=== PATIENT | female | born 1955 | race Caucasian/White ===

== ENCOUNTER → 2018-06-24 | Outpatient (CLI) | payer OTHER | END | disposition home or self-care (01) | LOC: LAB EV 16:46 → LAB SHORT 16:46 | DX: J02.9 Acute pharyngitis, unspecified (principal) | CPT/HCPCS: 87070 ==

== ENCOUNTER 2019-02-26 07:35 | Day surgery (SDC) | payer OTHER ==
[~2019-02-26] VITALS: Ht 165.1 cm; Wt 52.9 kg
[~2019-02-26 07:35] MED LIST: ASCO500 PO; Adult Low Dose81 MG PO; BACL20 PO; BIOTIN1000 MCG PO; Carac30 GM TOP; ESTR2 PO; Esgic Tablet1 EACH PO; GABA800 PO; LORATADINE D PO; NATURAL LUTEIN20 MG PO; TOCO1000 PO
[2019-02-26] MEDS ORDERED: AMLO5 PO (08:21)
[2019-02-26] MEDS ORDERED: ACYC200 PO (08:23)
== END 2019-02-26 10:01 | disposition home or self-care (01) ==
LOC: ORSCSDS 07:35
PROVIDERS: Internal Medicine Gastroenterology
PROC: 0DBN8ZX Excision of Sigmoid Colon, Via Natural or Artificial Opening Endoscopic, Diagnostic (ICD-10-PCS; principal; 2019-02-26 08:45)
PROC: 0DBK8ZX Excision of Ascending Colon, Via Natural or Artificial Opening Endoscopic, Diagnostic (ICD-10-PCS; principal; 2019-02-26 08:45)
PROC: 0DBP8ZX Excision of Rectum, Via Natural or Artificial Opening Endoscopic, Diagnostic (ICD-10-PCS; principal; 2019-02-26 08:45)
DX: Z12.11 Encounter for screening for malignant neoplasm of colon (principal); D12.5 Benign neoplasm of sigmoid colon; D12.2 Benign neoplasm of ascending colon; K57.30 Diverticulosis of large intestine without perforation or abscess without bleeding; J45.909 Unspecified asthma, uncomplicated; K64.8 Other hemorrhoids; Z80.0 Family history of malignant neoplasm of digestive organs; K62.89 Other specified diseases of anus and rectum; F17.210 Nicotine dependence, cigarettes, uncomplicated; Z79.82 Long term (current) use of aspirin; Z79.899 Other long term (current) drug therapy
CPT/HCPCS: 88305; J2704; J7120

== ENCOUNTER 2020-06-16 05:50 | Day surgery (SDC) | payer MEDICARE ==
[~2020-06-16] VITALS: Ht 167.6 cm; Wt 62.0 kg
[~2020-06-16 05:50] MED LIST changes: +ACYC200 PO; +AMLO5 PO; +TOPROL XL25 MG PO; +XARELTO20 MG PO
[2020-06-16] MEDS ORDERED: Nexium40 MG PO (06:31)
--- NOTE | 2020-06-16 10:28 | NUR ---
POST OP S/P DUAL CHAMBER PACEMAKER. POST OP VS IN PROGRESS AND STABLE. 1 NORCO GIVEN WITH CRACKERS FOR PAIN TO LEFT CHEST WALL. DRESSING APPEARS CDI. SLING PLACED TO LEFT ARM AND PT EDUCATED ON ARM RESTRICTIONS. UP TO RESTROOM INDEP. ORIENTED TO CALL LIGHT AND ROOM. SIG OTHER AT BEDSIDE FOR SUPPORT.
--- NOTE | 2020-06-16 15:54 | NUR ---
SHIFT SUMMARY NO ACUTE CHANGES. 1 NORCO + ICE TO LEFT SHOULDER FOR PAIN MANAGEMENT. LEFT ARM REMAINS IN SLING AND DRESSING CDI. TELE PACED/AFLUTTER IN THE 60s. PT INDEP TO BATHROOM. NEREIDA DIET. PLANNING FOR DISCHARGE HOME TOMORROW.
--- NOTE | 2020-06-17 05:23 | NUR ---
SHIFT SUMMARY POD#1 PACER PLACEMENT. AAOX4. DRESSING TO LEFT CHEST WALL C/D/I. LUE IN SLING. ICE APPLIED TO DRESSING PRN T/O NIGHT. TELEMETRY IN PLACE, NSR TO A-FLUTTER 60s TO 80s WITH OCCASSIONAL ATRIAL PACING. AWAITING EKG + INTERRIGATION THIS AM. PT RESTED WELL T/O NIGHT. DISCOMFORT DECREASED WITH 1 NORCO Q4H. PT CURRENTLY RESTING AT THIS TIME WITH CALL LIGHT IN REACH.
[2020-06-17] MEDS ORDERED: HYDROCODONE-AC1 EAC8 PO (11:01)
--- NOTE | 2020-06-17 14:03 | NUR ---
DISCHARGE: PACKET PRINTED AND PT EUDUCATED. PT VERBALIZED UNDERSTANDING. PT GIVEN SCRIPT. 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
== END 2020-06-17 11:00 | disposition home or self-care (01) ==
LOC: MHTC 05:50 → SURS 08:35 → MHTC 06-17 11:00
DX: I49.5 Sick sinus syndrome (principal); I48.0 Paroxysmal atrial fibrillation; I48.91 Unspecified atrial fibrillation; F17.210 Nicotine dependence, cigarettes, uncomplicated; K21.9 Gastro-esophageal reflux disease without esophagitis; Z79.899 Other long term (current) drug therapy; Z88.0 Allergy status to penicillin; Z88.8 Allergy status to other drugs, medicaments and biological substances; Z79.01 Long term (current) use of anticoagulants
CPT/HCPCS: 33208; 71045; 71046; 76937; 99152; 99153; A9270-GY; C1785; C1894; C1898; J0690; J1644; J2250; J3010; J3370; J7030; J7040

== ENCOUNTER 2020-09-22 18:05 | Emergency (ER) | payer MEDICARE ==
[~2020-09-22] VITALS: Ht 165.1 cm; Wt 49.9 kg
[~2020-09-22 18:05] MED LIST changes: +GABA300 PO; -GABA800 PO; +HYDROCODONE-AC1 EAC8 PO; +Nexium40 MG PO
[2020-09-22 19:17] LABS: BASOPHILS ABSOLUTE AUTO 0.01 K/mm3 (0.00-0.23); BASOPHILS PERCENT AUTO 1 % (0-2); EOSINOPHILS PERCENT AUTO 0 % (0-6); Hematocrit 48.6 % (33.0-51.0); Hemoglobin 15.8 g/dL (11.5-16.0); Mean Corpuscular HGB 31.9 pg (26.0-34.0); Mean Corpuscular HGB Conc 32.5 g/dL (31.5-36.5); Mean Corpuscular Volume 98 fL (80-100); Mean Platelet Volume 9.6 fL (9.1-12.4); Platelet Count 214 K/mm3 (150-400); RDW Standard Deviation 54.5 fL (35.1-46.3); Red Blood Cell Count 4.96 M/mm3 (3.80-5.20); White Blood Cell Count 1.17 K/mm3 (4.00-11.30)
[2020-09-22 19:18] LABS: IMMATURE GRAN PERCENT AUTO 0 % (0-1); LYMPHOCYTES PERCENT AUTO 17 % (21-46); MONOCYTES ABSOLUTE AUTO 0.02 K/mm3 (0.16-1.47); MONOCYTES PERCENT AUTO 2 % (4-13); NEUTROPHILS ABSOLUTE AUTO 0.94 K/mm3 (1.96-9.15); NEUTROPHILS PERCENT AUTO 80 % (41-73)
[2020-09-22 19:34] LABS: Alanine Aminotransfer (ALT/SGP 17 U/L (12-78); Albumin, Blood 3.7 g/dL (3.4-5.0); Albumin/Globulin Ratio 0.8 (0.8-1.8); Alk Phos 99 U/L (50-136); Anion Gap 10 mmol/L (6-16); Aspartate Aminotrans (AST/SGOT 29 U/L (12-37); Blood Urea Nitrogen 12 mg/dL (8-24); Bun/Creatinine Ratio 15.6 (12.0-20.0); CO2, Blood 23 mmol/L (21-32); Calcium, Blood 8.7 mg/dL (8.5-10.1); Chloride, Blood 101 mmol/L (98-108); Creatinine, Blood 0.77 mg/dL (0.40-1.00); Globulin, Blood 4.4 g/dL (2.2-4.0); Glomerular Filtration Rate >60 (60-); Glucose, Blood 99 mg/dL (70-99); Potassium, Blood 3.6 mmol/L (3.5-5.5); Sodium, Blood 134 mmol/L (136-145); Total Protein, Blood 8.1 g/dL (6.4-8.2)
[2020-09-22] MEDS ORDERED: ONDA8 PO (19:52)
[2020-09-22] MEDS ORDERED: Revlimid10 MG PO (19:55)
[2020-09-22] MEDS ORDERED: Roxicodone5 MG PO (20:29)
[2020-09-22] MEDS ORDERED: KETO10 PO (20:29)
[2020-09-22] MEDS ORDERED: Zofran8 MG PO (20:29)
== END 2020-09-22 21:06 | disposition home or self-care (01) ==
LOC: ER 18:05
PROVIDERS: Physician Assistant
DX: N13.2 Hydronephrosis with renal and ureteral calculous obstruction (principal); I10 Essential (primary) hypertension; I48.0 Paroxysmal atrial fibrillation; F17.210 Nicotine dependence, cigarettes, uncomplicated; Z95.0 Presence of cardiac pacemaker; Z79.899 Other long term (current) drug therapy
CPT/HCPCS: 36415; 76705; 80053; 83690; 85025; 96361; 96374; 96375; 99284-25; A9270; A9270-GY; J1170; J1885; J2405; J7030

== ENCOUNTER → 2020-09-29 | Outpatient (CLI) | payer MEDICARE ==
[~2020-09-29] MED LIST changes: +KETO10 PO; +ONDA8 PO; +Revlimid10 MG PO; +Roxicodone5 MG PO; +Zofran8 MG PO
[2020-09-29 10:12] LABS: BASOPHILS ABSOLUTE AUTO 0.05 K/mm3 (0.00-0.23); BASOPHILS PERCENT AUTO 3 % (0-2); Hematocrit 34.2 % (33.0-51.0); LYMPHOCYTES ABSOLUTE AUTO 0.27 K/mm3 (0.84-5.20); LYMPHOCYTES PERCENT AUTO 15 % (21-46); MONOCYTES ABSOLUTE AUTO 0.31 K/mm3 (0.16-1.47); MONOCYTES PERCENT AUTO 17 % (4-13); Mean Corpuscular HGB 31.4 pg (26.0-34.0); Mean Corpuscular HGB Conc 35.1 g/dL (31.5-36.5); Mean Corpuscular Volume 90 fL (80-100); RDW Coefficient Variation 15.3 % (11.7-14.2); RDW Standard Deviation 50.5 fL (35.1-46.3); Red Blood Cell Count 3.82 M/mm3 (3.80-5.20)
[2020-09-29 10:27] LABS: Albumin, Blood 1.9 g/dL (3.4-5.0); Albumin/Globulin Ratio 0.5 (0.8-1.8); Bilirubin, Total 2.4 mg/dL (0.1-1.0); Bun/Creatinine Ratio 31.9 (12.0-20.0); Calcium, Blood 8.2 mg/dL (8.5-10.1); Creatinine, Blood 1.41 mg/dL (0.40-1.00); Globulin, Blood 3.9 g/dL (2.2-4.0); Potassium, Blood 3.2 mmol/L (3.5-5.5); Total Protein, Blood 5.8 g/dL (6.4-8.2)
[2020-09-29 10:36] LABS: EOSINOPHILS PERCENT AUTO 6 % (0-6); IMMATURE GRAN ABSOLUTE AUTO 0.14 K/mm3 (0.00-0.10); IMMATURE GRAN PERCENT AUTO 8 % (0-1); NEUTROPHILS ABSOLUTE AUTO 0.94 K/mm3 (1.96-9.15); NEUTROPHILS PERCENT AUTO 52 % (41-73)
[2020-09-29 10:38] LABS: Platelet Count 13 K/mm3 (150-400); White Blood Cell Count 1.81 K/mm3 (4.00-11.30)
== END | disposition home or self-care (01) ==
LOC: LAB SHORT 09:55 → LAB EV 09:55
PROVIDERS: Physician Assistant
DX: R50.9 Fever, unspecified (principal); R53.83 Other fatigue
CPT/HCPCS: 80053; 83605; 85025

== ENCOUNTER → 2020-10-26 | Outpatient (CLI) | payer MEDICARE ==
[2020-10-26 15:36] LABS: Source, Urine Clean Catch
[2020-10-26 16:51] LABS: Appearance, Urine Hazy (Clear); Bilirubin, Urine Neg (Neg); Blood, Urine 2+ (Neg); Color, Urine Yellow (P-Yellow); Glucose Qualitative, Urine Neg (Neg); Ketones, Urine Neg (Neg); Leukocyte Esterase, Urine 2+ (Neg); Nitrite, Urine Neg (Neg); Protein, Urine 2+ (Neg); Urobilinogen, Urine NORM (Normal)
[2020-10-26 17:05] LABS: Bacteria Rare /hpf; Squamous Epithelial Cells Mod /hpf (Few)
== END | disposition home or self-care (01) ==
LOC: LAB 15:30 → LAB SHORT 15:30
PROVIDERS: Urology Female Pelvic Medicine and Reconstructive Surgery
DX: R35.0 Frequency of micturition (principal)
CPT/HCPCS: 81001; 87086

== ENCOUNTER → 2022-08-08 | Outpatient (CLI) | payer MEDICARE | LOC: PLD 07:57 → LAB SHORT 07:57 → LAB 07:57 | DX: D48.5 Neoplasm of uncertain behavior of skin (principal) | CPT/HCPCS: 88305 ==

== ENCOUNTER 2024-04-18 16:28 | Inpatient (IN) | payer MEDICARE ==
[~2024-04-18] VITALS: Ht 165.1 cm; Wt 51.3 kg
[2024-04-18] MEDS ORDERED: HYDROmorphone HCl/Pf 1MG SYR IV ONE (17:20)
[2024-04-18] MEDS ORDERED: Ondansetron HCl 2 MG / ML 2ML Vial IV ONE (17:20)
[2024-04-18] MEDS ORDERED: Acetaminophen 325 MG TABLET PO PRN (18:10)
[2024-04-18] MEDS ORDERED: Lactated Ringer's 1,000 ML IV ONE (18:15)
[2024-04-18] MEDS ORDERED: HYDROmorphone HCl/Pf 1MG SYR IV PRN (18:15)
[2024-04-18] MEDS ORDERED: Naloxone HCl 0.4MG / ML 1ML Vial IV PRN (18:15)
[2024-04-18] MEDS ORDERED: OxyCODONE HCL 5 MG TAB PO PRN (18:15)
[2024-04-18] MEDS ORDERED: Ketorolac Tromethamine 15mg Vial IV PRN (18:45)
[2024-04-18] MEDS ORDERED: Ondansetron HCl 2 MG / ML 2ML Vial IV PRN (18:45)
--- NOTE | 2024-04-18 20:30 | NUR ---
ARRIVAL TO UNIT PT ARRIVED TO UNIT VIA [place] FROM ED. PT A&0 x4. VSS, Hx; PACEMAKER & A-FIB. S/P HIP Fx R/T GLF. R HIP PAINFUL, PT MIN ASSIST WITH MOVING LIMB. PT ON BEDREST AT THIS TIME. MEDICATED PER EMAR FOR PAIN, PT REPORTS PAIN REMAINS AT ELEVATED LEVEL. PUREWICK IN USE. CALL LIGHT IN REACH, BED IN LOWEST POSITION, ORIENTED TO UNIT.
[2024-04-18 20:39] VITALS: BP 167/92
[2024-04-18] MEDS ORDERED: AmLODIPine Besylate 5 MG Tab PO SCH (21:00)
[2024-04-18] MEDS ORDERED: Docusate Sodium 100 MG Cap PO SCH (21:00)
[2024-04-18] MEDS ORDERED: Baclofen 10 MG Tab PO SCH (21:00)
[2024-04-18] MEDS ORDERED: Gabapentin 300 MG Cap PO SCH (21:00)
[2024-04-19] VITALS (21 sets, daily range): BP systolic 92–142; BP diastolic 47–89
[2024-04-19] MEDS ORDERED: Lactated Ringer's 1,000 ML IV SCH ×2 (00:05→12:50)
[2024-04-19 05:02] LABS: BASOPHILS ABSOLUTE AUTO 0.03 K/mm3 (0.00-0.23); BASOPHILS PERCENT AUTO 1 % (0-2); EOSINOPHILS ABSOLUTE AUTO 0.12 K/mm3 (0.00-0.68); EOSINOPHILS PERCENT AUTO 3 % (0-6); Hematocrit 34.9 % (33.0-51.0); Hemoglobin 11.2 g/dL (11.5-16.0); IMMATURE GRAN ABSOLUTE AUTO 0.01 K/mm3 (0.00-0.10); IMMATURE GRAN PERCENT AUTO 0 % (0-1); LYMPHOCYTES ABSOLUTE AUTO 0.64 K/mm3 (0.84-5.20); LYMPHOCYTES PERCENT AUTO 16 % (21-46); MONOCYTES ABSOLUTE AUTO 0.32 K/mm3 (0.16-1.47); MONOCYTES PERCENT AUTO 8 % (4-13); Mean Corpuscular HGB 30.6 pg (26.0-34.0); Mean Corpuscular HGB Conc 32.1 g/dL (31.5-36.5); Mean Corpuscular Volume 95 fL (80-100); Mean Platelet Volume 9.5 fL (9.1-12.4); NEUTROPHILS PERCENT AUTO 71 % (41-73); Platelet Count 168 K/mm3 (150-400); RDW Coefficient Variation 15.6 % (11.7-14.2); RDW Standard Deviation 55.6 fL (35.1-46.3); Red Blood Cell Count 3.66 M/mm3 (3.80-5.20); White Blood Cell Count 3.92 K/mm3 (4.00-11.30)
[2024-04-19 05:16] LABS: International Normalized Ratio 1.04; Prothrombin Time Results 11.1 Sec (9.7-11.5)
[2024-04-19 05:28] LABS: Albumin, Blood 2.8 g/dL (3.4-5.0); Albumin/Globulin Ratio 0.8 (0.8-1.8); Bilirubin, Total 0.5 mg/dL (0.1-1.0); Bun/Creatinine Ratio 16.6 (12.0-20.0); Calcium, Blood 7.8 mg/dL (8.5-10.1); Creatinine, Blood 0.78 mg/dL (0.40-1.00); Globulin, Blood 3.5 g/dL (2.2-4.0); Magnesium, Blood 1.9 mg/dL (1.6-2.4); Potassium, Blood 3.3 mmol/L (3.5-5.5); Total Protein, Blood 6.3 g/dL (6.4-8.2)
--- NOTE | 2024-04-19 05:36 | NUR ---
SHIFT SUMMARY S/P R HIP Fx R/T GLF. NO ACUTE CHANGES OVERNIGHT. VSS; CONT BIOX IN USE. NPO SINCE MIDNIGHT IN ANTICIPATION OF SURGERY LATER TODAY. IV FLUIDS INFUSING PER EMAR. PT REPORTS PAIN IN R HIP, MEDICATED PER EMAR. R HIP SWOLLEN, DENIES N/T, CAN WIGGLE TOES ON R FOOT. PUREWICK IN USE. PT ON BEDREST AT THIS TIME. CALL LIGHT IN REACH, BED IN LOWEST POSITION, WILL REPORT TO DAY RN.
[2024-04-19] MEDS ORDERED: Potassium Chloride 20 MEQ TabCR PO ONE (08:00)
[2024-04-19] MEDS ORDERED: Ascorbic Acid 500 MG Tab PO SCH (08:00)
[2024-04-19] MEDS ORDERED: AmLODIPine Besylate 5 MG Tab PO SCH (09:00)
[2024-04-19] MEDS ORDERED: LENALIDOMIDE 10 MG PO SCH (09:00)
[2024-04-19] MEDS ORDERED: Metoprolol Succinate 25 MG TABCR PO SCH (09:00)
[2024-04-19] MEDS ORDERED: LOMOTIL 2.5-0.1 EACH PO (12:21)
[2024-04-19] MEDS ORDERED: BUTALB-ACETAMI1 EAC5 PO (12:21)
[2024-04-19] MEDS ORDERED: Phenergan25 M1 PO (12:22)
[2024-04-19] MEDS ORDERED: CeFAZolin Sodium 2,000 MG in NS 100 ML IV SCH (13:05)
[2024-04-19] MEDS ORDERED: Bupivacaine 0.5% Inj 10 ML Vial ONE (13:10)
--- NOTE | 2024-04-19 13:20 | NUR ---
1245 TO DAY SURGERY PER BED
[2024-04-19] MEDS ORDERED: FentaNYL Citrate 50 MCG/ML 2 ML Injection ONE ×3 (13:49→15:28)
[2024-04-19] MEDS ORDERED: propofoL 20 ML IV ONE (13:49)
[2024-04-19] MEDS ORDERED: ePHEDrine Sulfate 50 MG/ML 1ML Injection ONE (14:03)
[2024-04-19] MEDS ORDERED: Atropine Sulfate 0.4 MG/1 ML Vial ONE (14:24)
[2024-04-19] MEDS ORDERED: Metoclopramide HCl 5MG / ML 2ML Vial ONE (15:01)
[2024-04-19] MEDS ORDERED: Ondansetron HCl 2 MG / ML 2ML Vial ONE (15:01)
[2024-04-19] MEDS ORDERED: Ketorolac Tromethamine 30mg Vial ONE (15:01)
[2024-04-19] MEDS ORDERED: Dexamethasone Sod Phos 10 MG/ML 1ML VIAL ONE (15:01)
[2024-04-19] MEDS ORDERED: HYDROmorphone HCl/Pf 1MG SYR ONE (15:34)
[2024-04-19] MEDS ORDERED: Pantoprazole Sodium 40 MG Tab PO SCH (16:30)
--- NOTE | 2024-04-19 17:59 | NUR ---
1645 RETURNED TO ROOM. ALERT BUT STATES FEELS SLEEPY. PT REPORTS HIP FEELS MUCH BETTER THAN PRE OP. DENIES ANY NUMBNESS OR TINGLING WIGGLES TOES WHEN ASKED TO DO SO. AQUACELL DRESSINGS DRY AND INTACT X2 TO RIGHT HIP
[2024-04-20 02:01] VITALS: BP 112/46
--- NOTE | 2024-04-20 04:23 | NUR ---
SHIFT SUMMARY POD1 R HIP NAILING. X2 AQUACELS ARE C/D/I. SENSATION AND CIRCULATION REMAIN INTACT IN RLE. VSS, PT REMAINS ON INTERMITTENT O2 WHILE SLEEPING DUE TO LOW SATS AFTER PAIN MEDICATION. MEDICATED FOR PAIN WITH ORALS AND ONE DOSE OF IV NARCOTICS. TOLLERABLE RESULTS NOTED. PT APPEARS TO BECOME SLIGHTLY CONFUSED WTIH PAIN MEDICATION BUT REMAINS APPROPRIATE AND SAFE, PLAN TO PASS ONTO DAY SHIFT. PT SLEPT ON AND OFF T/O THE NIGHT, AMBULATING TO BSC WIT 1P MIN ASSIST. TOLLERATING PO INTAKE W/O N/V. AWAITING PT EVAL AND DISCHARGE INSTRUCTIONS. OVERALL, NO ACUTE EVENTS NOTED T/O THE NIGHT.
[2024-04-20 05:15] LABS: BASOPHILS ABSOLUTE AUTO 0.01 K/mm3 (0.00-0.23); BASOPHILS PERCENT AUTO 0 % (0-2); EOSINOPHILS PERCENT AUTO 0 % (0-6); Hemoglobin 9.4 g/dL (11.5-16.0); IMMATURE GRAN ABSOLUTE AUTO 0.02 K/mm3 (0.00-0.10); IMMATURE GRAN PERCENT AUTO 0 % (0-1); LYMPHOCYTES ABSOLUTE AUTO 0.48 K/mm3 (0.84-5.20); LYMPHOCYTES PERCENT AUTO 8 % (21-46); MONOCYTES ABSOLUTE AUTO 0.63 K/mm3 (0.16-1.47); MONOCYTES PERCENT AUTO 10 % (4-13); Mean Corpuscular HGB 31.6 pg (26.0-34.0); Mean Corpuscular HGB Conc 32.4 g/dL (31.5-36.5); Mean Corpuscular Volume 98 fL (80-100); Mean Platelet Volume 10.3 fL (9.1-12.4); NEUTROPHILS ABSOLUTE AUTO 5.12 K/mm3 (1.96-9.15); NEUTROPHILS PERCENT AUTO 82 % (41-73); Platelet Count 158 K/mm3 (150-400); RDW Coefficient Variation 15.6 % (11.7-14.2); RDW Standard Deviation 55.3 fL (35.1-46.3); Red Blood Cell Count 2.97 M/mm3 (3.80-5.20); White Blood Cell Count 6.26 K/mm3 (4.00-11.30)
[2024-04-20 05:36] LABS: Bun/Creatinine Ratio 17.4 (12.0-20.0); Calcium, Blood 8.1 mg/dL (8.5-10.1); Creatinine, Blood 0.81 mg/dL (0.40-1.00); Potassium, Blood 4.3 mmol/L (3.5-5.5)
[2024-04-20 08:28] VITALS: BP 109/60
[2024-04-20] MEDS ORDERED: Misc. Tablet PO SCH ×2 (09:00)
[2024-04-20] MEDS ORDERED: Vitamin E 1000 Unit Cap PO SCH (09:00)
[2024-04-20 15:54] VITALS: BP 98/49
[2024-04-20 15:56] VITALS: BP 102/45
--- NOTE | 2024-04-20 19:56 | NUR ---
SHIFT SUMMARY POD#1 RIGHT HIP PINNING. AAOX4. DISCOMFORT CONTROLLED WITH 5MG ROXICODONE + X1 DILAUDID FOR BREAKTHROUGH PAIN POST PHYSICAL THERAPY. NO NAUSEA/EMESIS. PT UP WORKING WITH PT X2 TODAY. CONTINUE TO ENCOURAGE AMBULATION TOLERATED. REPORT TO INSECT CONTROL AIDE RN.
[2024-04-20 19:57] VITALS: BP 120/61
--- NOTE | 2024-04-21 05:24 | NUR ---
SHIFT SUMMARY POD2 R HIP PINNING, SENSATION AND CIRCULATION REMAIN INACT. DRESSING HAS LIGHT SHADOWING PRESENT, ABOUT THE SIZE OF PENNIES. VSS. PT SLEPT ON AND OFF T/O THE NIGHT. AMBULATED TO THE BATHROOM TO VOID MULTIPLE TIMES, PT REPORTING SOME MILD STRESS INCONTINENCE AND URGENCY BUT DENIES OTHER URINARY SYMPTOMS. MEDIATED FOR PAIN WITH PRN'S AND UTILIZED ICE T/O THE NIGHT. OVERALL SWELLING IN RIGHT THIGH HAS DECREASED AND HER PAIN IS BECOMING TOLLERABLE. OVERALL NO ACUTE EVENTS NOTED, PLAN FOR PT TO WORK WITH PHYSICAL THERAPY AND D/C HOME W/ HH WHEN CLEARED
[2024-04-21 07:12] VITALS: BP 116/50
[2024-04-21] MEDS ORDERED: OXYC5 PO (09:29)
[2024-04-21] MEDS ORDERED: Acetaminophen650 M1 PO (09:32)
[2024-04-21] MEDS ORDERED: OXAYDO5 M1 PO (09:33)
--- NOTE | 2024-04-21 11:18 | NUR ---
DISCHARGE SUMMARY POD 2 R HIP CEPHALOMEDUKLLARY NAILING, A/OX4, VSS, TOLERATING PO, AMBULATES WELL WITH SBA, VOIDING INDEPENDENTLY, REFUSED TO STAY UP TO CHAIR THIS MORNING DESPITE STAFF ENCOURAGING HER TO DO SO PART OF HER RECOVERY. 2 AQUACELLS TO R HIP WITH SMALL AMT OF SS DRAINAGE NOTED ON THEM, THESE WERE CHANGED JUST BEFORE DISCHARGE AND AN ADDITIONAL 2 DRESSINGS WERE PROVIDED FOR HER TO CHANGE AT HOME DIRECTED. IV ACCESS WAS REMOVED THIS AM DURING SHIFT CHANGED THE NOC RN NOTICED IT LOOK IF IT HAD BEEN CAUGHT ON SOMETHING AND THE CATHETER HAD BEEN PULLED OUT. DISCUSSED DISCHARGE INFORMATION WITH HER AND HER INCLUDING HOME CARE, MEDICATIONS, AND FOLLOW UP APPOINTMENTS. NO QUESTIONS AT THIS TIME, PT TAKEN OUT VIA WC TO PRIVATE AUTO TO GO HOME.
[2024-04-21] MEDS ORDERED: Heparin Sodium,Porcine 5,000 UNIT/0.5 ML SDV SC SCH (16:00)
== END 2024-04-21 11:15 | disposition home or self-care (01) | DRG 481 ==
LOC: ER 16:28 → ERHOLD 16:29 → SURS 16:29
PROVIDERS: Internal Medicine; Orthopaedic Surgery; ADMIT Student in an Organized Health Care Education/Training Program
PROC: 0QS636Z Reposition Right Upper Femur with Intramedullary Internal Fixation Device, Percutaneous Approach (ICD-10-PCS; principal; 2024-04-19 13:15)
DX: S72.141A Displaced intertrochanteric fracture of right femur, initial encounter for closed fracture (principal); C90.00 Multiple myeloma not having achieved remission; F11.20 Opioid dependence, uncomplicated; I48.21 Permanent atrial fibrillation; F17.210 Nicotine dependence, cigarettes, uncomplicated; G43.909 Migraine, unspecified, not intractable, without status migrainosus; S50.01XA Contusion of right elbow, initial encounter; W18.30XA Fall on same level, unspecified, initial encounter; R10.13 Epigastric pain; K21.9 Gastro-esophageal reflux disease without esophagitis; M19.90 Unspecified osteoarthritis, unspecified site; Z98.890 Other specified postprocedural states; Z90.49 Acquired absence of other specified parts of digestive tract; Z95.0 Presence of cardiac pacemaker; Z90.721 Acquired absence of ovaries, unilateral; Z98.82 Breast implant status; Z88.0 Allergy status to penicillin; Z88.8 Allergy status to other drugs, medicaments and biological substances; Z79.899 Other long term (current) drug therapy
CPT/HCPCS: 36415; 73502; 80048; 80053; 83735; 85025; 85610; 93005; 93010; 94762; 96361; 96374; 96375; 96376; 97110; 97116; 97161; 97530; 99284-25; A9270; C1713; C1769; G0378; J0461; J0690; J1100; J1170; J1885; J2405; J2704; J2765; J3010; J7120